=== PATIENT | female | born 1990 | race Hispanic/Latino ===

== ENCOUNTER 2017-11-02 21:25 | Observation (INO) | payer SELFPAY ==
[~2017-11-02] VITALS: Ht 162.6 cm; Wt 83.0 kg
[2017-11-02] MEDS ORDERED: ACETAMINOPHEN 325 MG TAB ONE (22:34)
[2017-11-02] MEDS ORDERED: SODIUM CHLORIDE 0.9% 1000ML 1,000 ML IV SCH (23:15)
[2017-11-02 23:26] LABS: BASOPHILS # (AUTO) 0.1 (0.0-0.1); BASOPHILS % 0.3 % (0.0-1.0); EOSINOPHILS % 0.1 % (0.0-6.0); HEMATOCRIT 41.4 % (34.2-44.1); HEMOGLOBIN 14.3 g/dL (12.0-16.0); LYMPHOCYTES # (AUTO) 1.5 (1.0-3.2); LYMPHOCYTES % 9.7 % (18.0-39.1); MEAN CORPUSCULAR HEMOGLOBIN 29.9 pg (28-32); MEAN CORPUSCULAR HGB CONC 34.5 g/dL (31-35); MEAN CORPUSCULAR VOLUME 86.4 fL (81-99); MONOCYTES # (AUTO) 1.3 (0.2-0.8); MONOCYTES % 8.5 % (4.4-11.3); NEUTROPHILS # (AUTO) 12.7 (2.1-6.9); NEUTROPHILS % 81.1 % (38.7-80.0); PLATELET COUNT 261 x10e3/uL (140-360); RED BLOOD COUNT 4.79 x10e6/uL (3.6-5.1)
[2017-11-02] MEDS ORDERED: ACETAMINOPHEN 325 MG TAB PO ONE (23:30)
[2017-11-02 23:34] LABS: CLARITY,URINE CLEAR (CLEAR); COLOR,URINE YELLOW (YELLOW); LEUKOCYTE ESTERASE ,URINE 2+ (NEGATIVE)
[2017-11-02 23:35] LABS: BACTERIA,URINE MODERATE /HPF; BILIRUBIN,URINE NEGATIVE (NEGATIVE); EPITHELIAL CELLS,URINE FEW /LPF; KETONES,URINE 2+ (NEGATIVE); NITRITE,URINE POSITIVE (NEGATIVE); PROTEIN,URINE DIPSTICK 2+ (NEGATIVE); URINE UROBILINOGEN 4 mg/dL (0.2 - 1)
[2017-11-02 23:37] LABS: ALANINE AMINOTRANSFERASE 19 IU/L (0-55); ALBUMIN 3.4 g/dL (3.5-5.0); ALBUMIN/GLOBULIN RATIO 0.8 (0.8-2.0); ALKALINE PHOSPHATASE 73 IU/L (40-150); ANION GAP 16.7 mmol/L (8-16); BLOOD UREA NITROGEN 8 mg/dL (7-26); BUN/CREATININE RATIO 10 (6-25); CALCIUM 9.4 mg/dL (8.4-10.2); CARBON DIOXIDE 22 mmol/L (22-29); CHLORIDE 103 mmol/L (98-107); CREATININE, SERUM 0.77 mg/dL (0.57-1.11); EST GLOMERULAR FILTRATION RATE > 60 ML/MIN (60-); GLUCOSE 99 mg/dL (74-118); POTASSIUM 3.7 mmol/L (3.5-5.1); SODIUM 138 mmol/L (136-145)
[2017-11-02] MEDS ORDERED: SODIUM CHLORIDE 0.9% 1000ML 1,000 ML ONE (23:37)
[2017-11-03] MEDS ORDERED: MORPHINE SULFATE 2 MG/ML SYR IV PRN (00:15)
[2017-11-03] MEDS ORDERED: ONDANSETRON HCL INJ 2 MG/ML VIAL IV PRN (00:15)
[2017-11-03] MEDS ORDERED: CEFTRIAXONE SOD 1 GM VIAL ONE (00:20)
[2017-11-03] MEDS: CEFTRIAXONE SOD 1 GM VIAL IV SCH (00:23)
[2017-11-03] MEDS: SODIUM CHLORIDE 0.9% 1000ML 1,000 ML IV SCH ×3 (00:23→20:50)
[2017-11-03] MEDS ORDERED: ONDANSETRON HCL INJ 2 MG/ML VIAL ONE (00:26)
--- NOTE | 2017-11-03 01:10 | Diagnostic Imaging Report ---
EXAM: CT ABDOMEN/PELVIS WO DATE: 11/03/2017 12:02 AM INDICATION: \S\FLANK PAIN, sepsis, concerns of pyelo COMPARISON: None TECHNIQUE: The abdomen and pelvis were scanned using a multidetector helical scanner. Coronal and sagittal reformations were obtained. CT low dose techniques were utilized, as applicable. IV Contrast: 0 ml Isovue 300/370 FINDINGS: Lack of IV contrast decreases sensitivity in evaluating abdominal and pelvic organs. LOWER THORAX: No consolidations LIVER/BILIARY: No masses. No ductal dilatation. GALLBLADDER: Contracted SPLEEN: Unremarkable PANCREAS: Unremarkable ADRENALS: No nodules KIDNEYS: Renal parenchyma is poorly assessed without IV contrast. There is mild perinephric and to a lesser extent periureteral inflammatory change. No stones. No hydronephrosis. GI TRACT: No wall thickening or evidence of obstruction. Normal appendix. VESSELS: Unremarkable PERITONEUM/RETROPERITONEUM: No free air or fluid LYMPH NODES: No lymphadenopathy REPRODUCTIVE ORGANS/BLADDER: Mild circumferential bladder wall thickening. Otherwise unremarkable. 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 IMPRESSION: Lack of IV contrast limits assessment of the renal parenchyma. Findings which can be seen with cystitis and ascending urinary tract infection (pyelitis/pyelonephritis). Correlate with urinalysis. Signed by: Dr Adele Andrews MD on 11/03/2017 1:07 AM
[2017-11-03] MEDS ORDERED: no home meds (01:34)
[2017-11-03] MEDS ORDERED: SODIUM CHLORIDE 0.9% 1000ML 1,000 ML ONE ×2 (01:55→06:30)
[2017-11-03] MEDS ORDERED: ACETAMINOPHEN 325 MG TAB ONE (04:48)
[2017-11-03] MEDS ORDERED: MORPHINE SULFATE 2 MG/ML SYR ONE (04:50)
[2017-11-03] MEDS: ACETAMINOPHEN 325 MG TAB PO PRN ×2 (04:54→17:36)
[2017-11-03] MEDS ORDERED: PIPER-TAZ 3.375 GM 50 ML ONE (06:30)
[2017-11-03] MEDS ORDERED: IBUPROFEN 600 MG TAB ONE (06:30)
[2017-11-03] MEDS ORDERED: SODIUM CHLORIDE 0.9% 1000ML 1,000 ML IV SCH (06:30)
[2017-11-03] MEDS ORDERED: PIPER-TAZ 3.375 GM 50 ML IV ONE (06:30)
[2017-11-03] MEDS ORDERED: IBUPROFEN 600 MG TAB PO STA (06:31)
[2017-11-03] MEDS ORDERED: SODIUM CHLORIDE 0.9% 1000ML 1,000 ML IV ONE (06:31)
[2017-11-03 13:00] VITALS: BP 94/58
--- NOTE | 2017-11-03 13:09 | History and Physical ---
CHIEF COMPLAINT: Dysuria and lower back pain. HPI: This is a 26-year-old female who has no past medical history, comes into the ED with complaints of cloudy urine and dysuria as well as lower back pain. Patient denies having a history of urinary tract infections in the past. Patient also reports having some episodic fever. She reports the lower back pain started last , it continued to get worse, and came into the ED for further evaluation. While here, patient was found to have significant UTI and was started on IV Rocephin. REVIEW OF SYSTEMS: Pertinent positives: Low back pain, dysuria, cloudy urine. Pertinent negatives: Denies any chest pain, palpitations, nausea, vomiting, diarrhea, dysuria, hematuria, frequency, urgency, lightheadedness, dizziness, abdominal pain, headache, shortness of breath, cough, congestion, fever, or any other complaints. The rest of the 14-point review of systems are reviewed with the patient and are negative. ALLERGIES: NO KNOWN DRUG ALLERGIES. MEDICATIONS AT HOME: None. PAST MEDICAL HISTORY: None. SURGICAL HISTORY: None. FAMILY HISTORY: Hypertension and diabetes. SOCIAL HISTORY: No drugs. No alcohol. Does not smoke. PHYSICAL EXAMINATION VITAL SIGNS: Temperature is 98.8, T-max is 103.1, her pulse is 87, respiratory rate is 18, blood pressure is 98/60, and pulse ox 98% on room air. GENERAL: No acute distress. Alert and oriented x 3. Cooperative on examination. HEENT: Head normocephalic, atraumatic. Eyes; pupils equal, round, and reactive to light bilaterally. Extraocular movements are intact bilaterally. Throat; no evidence of any erythema or exudates in the posterior pharynx. Has good dentition. NECK: Supple. Good range of motion. PULMONARY: Clear to auscultation bilaterally. No wheezing, rales, or rhonchi. No crackles appreciated. CARDIOVASCULAR: Positive S1 and S2. No murmurs, rubs, or gallops. ABDOMEN: Soft, nondistended, and nontender to palpation. Bowel sounds present. MUSCULOSKELETAL: Strength is 5/5 throughout. No evidence of muscle deficit on examination. No weakness appreciated. NEUROLOGIC: Cranial nerves II through XII are grossly intact. No evidence of any neurological deficits on exam. SKIN: Intact. Warm to touch. Good cap refill. PSYCHIATRIC: Normal affect and mood. EXTREMITIES: No edema. Good range of motion throughout. LABORATORY FINDINGS: Show urinalysis was consistent UTI. White count is 15.6, hemoglobin 14.3, hematocrit is 41, and platelets of 261. Chemistries; sodium 131, potassium 3.7, chloride 103, bicarb 22, anion gap is 16, BUN is 8, creatinine is 0.77, glucose 99, and calcium 9.4. LFTs were normal. MICROBIOLOGY: Blood cultures pending. I also requested for the urine culture to be sent. IMAGING STUDIES: CT abdomen and pelvis with IV contrast shows findings consistent with cystitis and pyelonephritis. IMPRESSION 1. Acute pyelonephritis. 2. Nausea and vomiting. 3. Hypotension. PLAN: At this time, continue with IV Rocephin. Monitor blood and urine cultures. Pain control and IV fluids. Regular diet. Lovenox for prophylaxis. Likely will be here for a couple of days once the urine cultures are back. I am not sure why the ER did not send for urine culture, but I had requested it right now. Job#: [id number] LPA
[2017-11-03 16:00] VITALS: BP 105/77
[2017-11-03 20:00] VITALS: BP 98/54
[2017-11-03 20:42] VITALS: BP 98/54
[2017-11-04] MEDS: ACETAMINOPHEN 325 MG TAB PO PRN ×2 (00:28→21:03)
[2017-11-04] MEDS: CEFTRIAXONE SOD 1 GM VIAL IV SCH ×2 (00:28→23:53)
[2017-11-04] MEDS: SODIUM CHLORIDE 0.9% 1000ML 1,000 ML IV SCH (01:00)
[2017-11-04 04:00] VITALS: BP 89/57
[2017-11-04 05:07] LABS: BASOPHILS % 0.3 % (0.0-1.0); EOSINOPHILS # (AUTO) 0.1 (0.0-0.4); EOSINOPHILS % 0.8 % (0.0-6.0); HEMATOCRIT 33.5 % (34.2-44.1); HEMOGLOBIN 11.4 g/dL (12.0-16.0); LYMPHOCYTES # (AUTO) 3.9 (1.0-3.2); LYMPHOCYTES % 31.3 % (18.0-39.1); MEAN CORPUSCULAR HEMOGLOBIN 29.7 pg (28-32); MEAN CORPUSCULAR VOLUME 87.2 fL (81-99); MONOCYTES # (AUTO) 1.5 (0.2-0.8); MONOCYTES % 12.1 % (4.4-11.3); NEUTROPHILS # (AUTO) 6.8 (2.1-6.9); NEUTROPHILS % 55.1 % (38.7-80.0); PLATELET COUNT 226 x10e3/uL (140-360); RED BLOOD COUNT 3.84 x10e6/uL (3.6-5.1)
[2017-11-04 05:32] LABS: ANION GAP 10.3 mmol/L (8-16); BLOOD UREA NITROGEN < 5 mg/dL (7-26); CALCIUM 8.4 mg/dL (8.4-10.2); CARBON DIOXIDE 22 mmol/L (22-29); CHLORIDE 109 mmol/L (98-107); CREATININE, SERUM 0.62 mg/dL (0.57-1.11); EST GLOMERULAR FILTRATION RATE > 60 ML/MIN (60-); GLUCOSE 98 mg/dL (74-118); POTASSIUM 3.3 mmol/L (3.5-5.1); SODIUM 138 mmol/L (136-145)
[2017-11-04 05:35] LABS: BUN/CREATININE RATIO 8 (6-25)
[2017-11-04 08:00] VITALS: BP 92/56
[2017-11-04] MEDS ORDERED: POTASSIUM CHLORIDE 20 MEQ TAB CR PO STA (09:29)
--- NOTE | 2017-11-04 11:08 | Progress Note ---
DATE: November 04, 2017 SUBJECTIVE: Patient states feeling much better today with no other issues. She reports having a headache, which she will be getting some Tylenol later today. Urine cultures consistent with gram-negative rods, but not identified her sensitivities. PHYSICAL EXAMINATION: VITAL SIGNS: Temperature 98.1, pulse rate 65, respiratory rate is 18. Her last blood pressure was 89/57, but she is asymptomatic, doing well with no complaints. Pulse ox 97% on 2 liters nasal cannula. GENERAL: Not in acute distress, alert and oriented x3. Cooperative on examination. HEENT: Head normocephalic, atraumatic. Eyes: Pupils equal, round and reactive to light bilaterally. Extraocular movements intact bilaterally. Throat; no evidence of any erythema or exudates in the posterior pharynx. Has poor dentition. NECK: Supple. Good range of motion. PULMONARY: Clear to auscultation bilaterally. No wheezing. No rales. No rhonchi. No crackles appreciated. CARDIOVASCULAR: Positive S1 and S2. No murmurs, rubs, or gallops appreciated. ABDOMEN: Soft, nondistended, nontender to palpation. Bowel sounds present. MUSCULOSKELETAL: Strength is 5/5 throughout. No evidence of any muscle deficit on examination. No weakness appreciated. NEUROLOGICAL: Cranial nerves II through XII are grossly intact. No evidence of any neurological deficits on exam. SKIN: Intact. Warm to touch. Good cap refill. PSYCHIATRIC: Normal affect and mood. EXTREMITIES: No edema. Good range of motion throughout. LAB FINDINGS: White count is 12.4, hemoglobin 11.4, hematocrit is 33, platelets are 226. Chemistries: Sodium 138, potassium is 3.3, chloride is 109, bicarb is 22, anion gap of 10, BUN is 5, creatinine is 0.62, glucose 98, calcium 8.4. Urinalysis consistent with UTI. Blood cultures negative, no growth to date. Urine cultures gram-negative bacilli. IMAGING STUDIES: None. IMPRESSION 1. Acute pyelonephritis. 2. Nausea and vomiting. 3. Hypotension, likely at baseline. 4. Hypokalemia. PLAN: Replace potassium. Continue IV antibiotics. Urine cultures are positive for gram-negative bacilli, but still pending final identification and sensitivities. Once available, we will discharge home. She is tolerating diet well with no complaints. She will likely be here till tomorrow once the identification of the urine is back and will go from there, otherwise. Job#: [id number] LESLIE
[2017-11-04 12:00] VITALS: BP 100/69
[2017-11-04 16:00] VITALS: BP 111/69
[2017-11-04 20:45] VITALS: BP 99/55
[2017-11-04 22:10] VITALS: BP 99/55
[2017-11-05 01:54] VITALS: BP 104/59
[2017-11-05 05:18] LABS: BASOPHILS % 0.4 % (0.0-1.0); EOSINOPHILS # (AUTO) 0.2 (0.0-0.4); EOSINOPHILS % 2.3 % (0.0-6.0); HEMATOCRIT 35.8 % (34.2-44.1); LYMPHOCYTES # (AUTO) 4.4 (1.0-3.2); LYMPHOCYTES % 47.5 % (18.0-39.1); MEAN CORPUSCULAR HEMOGLOBIN 29.5 pg (28-32); MEAN CORPUSCULAR HGB CONC 33.5 g/dL (31-35); MONOCYTES % 10.8 % (4.4-11.3); NEUTROPHILS # (AUTO) 3.5 (2.1-6.9); NEUTROPHILS % 38.7 % (38.7-80.0); PLATELET COUNT 270 x10e3/uL (140-360); RED BLOOD COUNT 4.07 x10e6/uL (3.6-5.1)
[2017-11-05 06:16] VITALS: BP 100/55
[2017-11-05 07:59] VITALS: BP 114/69
[2017-11-05 08:55] VITALS: BP 114/96
--- NOTE | 2017-11-05 11:31 | Discharge Summary ---
FINAL DISCHARGE DIAGNOSES 1. Acute pyelonephritis. 2. Nausea and vomiting. 3. Hypotension, resolved. 4. Hypokalemia, resolved. BUSINESS PERFORMANCE ADVISOR: None. VITAL SIGNS: Temperature 96.8, pulse 61, respiratory rate 18, blood pressure 104/59. She is satting 97% on room air. LAB FINDINGS: White count is 9.1, hemoglobin 12, hematocrit 35, platelets 270. Chemistry: Sodium 138, potassium 3.3, chloride 109, bicarb 22, anion gap of 10, BUN 5, creatinine 0.62. Urinalysis is consistent with a UTI. Blood cultures were negative. Urine cultures: E. coli pansensitive, will be discharged on oral Omnicef. IMAGING STUDIES: CT abdomen and pelvis showed concerns of cystitis, ascending urinary tract infection and pyelonephritis. HOSPITAL COURSE: This is a 26-year-old female who came into the ED with complaints of dysuria and right flank pain. Patient was admitted and treated for underlying pyelonephritis. Imaging studies concerning for pyelo and UTI. Patient was on broad-spectrum antibiotics. Blood cultures were negative. Urine cultures consistent with E. coli pansensitive in which she will be discharged on oral Omnicef for 10 more days. Patient was doing well prior to discharge home. On the day of discharge, vital signs were stable. Labs reviewed and stable. Patient seen, evaluated and examined thoroughly on the day of discharge. No other complaints. Patient verbalized understanding and agreed with plan of care to follow up accordingly as an outpatient with the primary care physician in 1 week. MEDICATIONS: See med reconciliation form including Omnicef 300-mg capsules 1 capsule p.o. b.i.d. for 10 more days. DISPOSITION: Home. CONDITION: Stable. DIET: Heart healthy. FOLLOWUP: With PCP in 1 week. In the event of any worsening symptoms, the patient was advised to come back to the ED for further evaluation. Discharge summary took greater than 35 minutes. RODRIGO MUNIZ MD Job#: [id number]
== END 2017-11-05 10:43 | disposition home or self-care (01) ==
LOC: ER 21:25 → ERHOLD 11-03 00:12 → MED/SURG2 11-03 12:47
PROVIDERS: ADMIT Internal Medicine; ATTEND Internal Medicine
DX: A41.9 Sepsis, unspecified organism (principal); N10 Acute pyelonephritis; N17.9 Acute kidney failure, unspecified; E87.6 Hypokalemia; I95.9 Hypotension, unspecified; R11.2 Nausea with vomiting, unspecified; B96.20 Unspecified Escherichia coli [E. coli] as the cause of diseases classified elsewhere
CPT/HCPCS: 36415 ×3; 74176; 80048; 80053; 81001; 81025; 85025 ×3; 87040; 87086; 87186; 99284; G0378 ×3; J0696 ×2; J2270; J2405; J2543; J7030 ×3